=== PATIENT | female | born 1970 | race Caucasian/White ===

== ENCOUNTER → 2020-11-18 | Outpatient (CLI) | payer BC | LOC: EXRD 09:27 | DX: M25.551 Pain in right hip (principal); G89.29 Other chronic pain | CPT/HCPCS: 73502 ==

== ENCOUNTER → 2020-11-29 | Outpatient (CLI) | payer BC | LOC: KOH-I 12:08 | DX: S32.009A Unspecified fracture of unspecified lumbar vertebra, initial encounter for closed fracture (principal); M51.37 Other intervertebral disc degeneration, lumbosacral region | CPT/HCPCS: 72131 ==